=== PATIENT | male | born 1990 | race Caucasian/White ===

== ENCOUNTER → 2019-10-15 | Outpatient (CLI) | payer OTHER ==
[~2019-10-15] MED LIST: COLC1TAB13 PO; METHACHOLINE KIT (J7674) INH ONE; NAPR-837 PO
--- NOTE | 2019-10-15 08:41 | PFTRPT ---
Site: [facility], [address] [place], [address] ID: [id number] Name: OLIVIER OSCAR Visit Date: 10/15/2019 Second ID: [id number] Referring Doctor: Elham Kaufman Reviewing Doctor: Seymour Anglin MD Sales And Marketing Coordinator: Frederick SIMMONS RRT Age: 28 : 1990 Sex: Male Race: Height: 69.00 Inches Weight: 183.00 Lbs BSA: 1.99 Order IDs: [id number] Requested Test(s): <RESP-PFT.METH CHAL> Diagnosis: R05 of albuterol for postbronchodilator. Review Status: Not Reviewed Pre-Bronch Post-Bronch Pred Actual %Pred Actual %Chng SPIROMETRY FVC (L) 5.33 4.18 78 4.17 FEV1 (L) 4.36 3.61 82 3.51 -2 FEV1/FVC (%) 82 86 105 84 -2 FEF 25% (L/sec) 8.21 6.68 81 6.91 3 FEF 50% (L/sec) 5.64 4.54 80 4.13 -9 FEF 75% (L/sec) 2.13 2.03 95 1.93 -4 FEF 25-75% (L/sec) 4.43 3.95 89 3.69 -6 FEF Max (L/sec) 10.02 8.33 83 7.14 -14 FIVC (L) 3.57 3.34 -6 FIF 50% (L/sec) 5.53 4.05 73 4.34 7 FIF Max (L/sec) 4.08 4.55 11 Expiratory Time (sec) 6.57 6.66 1 Back Extrap Vol (L) 0.13 0.15 16 Time To FEFmax (sec) 0.073 0.122 66
== END ==
LOC: M CARPUL 07:53
PROVIDERS: ATTEND Nurse Practitioner Adult Health
DX: R05 Cough (principal)
CPT/HCPCS: 94070; J7674

== ENCOUNTER → 2020-12-16 | Outpatient (CLI) | payer OTHER ==
[~2020-12-16] MED LIST changes: +COLC0.6T47 PO; -COLC1TAB13 PO; -METHACHOLINE KIT (J7674) INH ONE
[2020-12-16 13:11] LABS: COLLAGEN EPINEPHRINE 164 SECONDS (74-162)
[2020-12-16 13:13] LABS: INR 1.04; PROTHROMBIN TIME 13.9 SECONDS (12.5-14.3)
[2020-12-16 13:14] LABS: PARTIAL THROMBOPLASTIN TIME 32.6 SECONDS (24.2-38.5)
[2020-12-16 13:31] LABS: COLLAGEN ADP 116 SECONDS (56-103)
== END ==
LOC: M LAB 12:25
PROVIDERS: ATTEND Physician Assistant
DX: M47.22 Other spondylosis with radiculopathy, cervical region (principal)

== ENCOUNTER → 2021-01-16 | Outpatient (CLI) | payer OTHER ==
[2021-01-16 15:03] LABS: PLATELET COUNT, AUTOMATED 234 10^3/uL (150-450)
[2021-01-16 15:37] LABS: COLLAGEN EPINEPHRINE > 300 SECONDS (74-162)
[2021-01-16 16:00] LABS: COLLAGEN ADP 100 SECONDS (56-103)
== END ==
LOC: M LAB 14:34
PROVIDERS: ATTEND Physical Medicine & Rehabilitation
DX: Z01.812 Encounter for preprocedural laboratory examination (principal)

== ENCOUNTER → 2021-01-19 | Outpatient (CLI) | payer OTHER ==
[2021-01-19 10:47] LABS: COLLAGEN EPINEPHRINE > 300.0 SECONDS (74-162)
[2021-01-19 11:13] LABS: COLLAGEN ADP 107 SECONDS (56-103)
== END ==
LOC: M LAB 09:08
PROVIDERS: ATTEND Physical Medicine & Rehabilitation
DX: Z01.818 Encounter for other preprocedural examination (principal)

== ENCOUNTER → 2021-01-23 | Outpatient (CLI) | payer OTHER ==
[2021-01-23 08:26] LABS: COLLAGEN EPINEPHRINE 178 SECONDS (74-162)
[2021-01-23 08:45] LABS: COLLAGEN ADP 116 SECONDS (56-103)
== END ==
LOC: M LAB 07:33
PROVIDERS: ATTEND Physical Medicine & Rehabilitation
DX: Z01.812 Encounter for preprocedural laboratory examination (principal)

== ENCOUNTER 2021-02-20 07:18 | Emergency (ER) | payer OTHER ==
[~2021-02-20] VITALS: Ht 175.3 cm; Wt 82.2 kg
[2021-02-20] MEDS ORDERED: ADVA230A (07:29)
[2021-02-20] MEDS ORDERED: AMPH1CAP14 (07:29)
[2021-02-20] MEDS ORDERED: PREG150C (07:29)
[2021-02-20] MEDS ORDERED: PROAAER10 (07:29)
[2021-02-20] MEDS ORDERED: ZOLP10TA2 (07:29)
[2021-02-20] MEDS ORDERED: DULO1CAP6 (07:29)
[2021-02-20 08:05] LABS: BASO # 0.1 10^3/uL (0.0-0.2); BASO % 0.4 % (0.0-1.0); EOS # 0.1 10^3/uL (0.0-0.5); EOS % 0.6 % (0.0-3.0); HEMATOCRIT 45.6 % (42.0-52.0); HEMOGLOBIN 15.1 g/dl (13.5-17.5); LYMPH # 1.3 10^3/uL (1.5-5.0); LYMPH % 7.7 % (24.0-44.0); MEAN CORPUSCULAR HEMOGLOBIN 28.5 pg (27.0-33.0); MEAN CORPUSCULAR HGB CONC 33.1 g/dl (32.0-36.5); MONO # 0.8 10^3/uL (0.0-0.8); MONO % 4.7 % (2.0-8.0); NEUTROPHILS # 14.2 10^3/uL (1.5-8.5); NEUTROPHILS % 86.3 % (36.0-66.0); PLATELET COUNT, AUTOMATED 224 10^3/uL (150-450); WHITE BLOOD COUNT 16.4 10^3/uL (4.0-10.0)
[2021-02-20] MEDS ORDERED: ISOVUE-370 76% 100ML VIAL As Ordered ONE (08:14)
[2021-02-20 08:35] LABS: ALBUMIN 3.9 GM/DL (3.2-5.2); BILIRUBIN,DIRECT 0.2 MG/DL (0.0-0.2); BILIRUBIN,TOTAL 0.6 MG/DL (0.2-1.0); FREE T4 1.08 NG/DL (0.76-1.46); THYROID STIMULATING HORMONE 0.561 uIU/ML (0.358-3.740); TOTAL PROTEIN 7.1 GM/DL (6.4-8.2)
--- NOTE | 2021-02-20 08:36 | REP ---
INDICATION: co COMPARISON: None. TECHNIQUE: Axial contrast enhanced images from the thoracic inlet to the upper abdomen using pulmonary embolus technique with multiplanar re-formations. 75 ml Isovue 370 intravenous contrast material administered without complication. This CT examination was performed using the following dose reduction techniques: Automated exposure control, adjustment of mA and/or kv according to the patient's size, and use of iterative reconstruction technique. FINDINGS: Satisfactory enhancement of the pulmonary vasculature is achieved and no filling defects are identified to suggest pulmonary embolus. Further evaluation of the mediastinum demonstrates normal thoracic aorta, heart and pericardium. Lung reyes demonstrate early bilateral lower lobe atelectasis and or dependent changes. No focal consolidation, effusion, or pneumothorax. Tracheobronchial tree is patent. No nodule or mass lesion is identified. No adenopathy noted. Surrounding musculoskeletal structures intact IMPRESSION: No evidence for pulmonary embolus. Questionable bibasilar early atelectasis versus dependent changes. No focal consolidation or effusion. <Electronically signed by Raheel He > 02/20/21 0566
--- NOTE | 2021-02-20 08:37 | REP ---
INDICATION: CHEST PAIN. COMPARISON: 10/06/2018. TECHNIQUE: Single portable AP view of the chest was performed. FINDINGS: There is no acute infiltrate or pulmonary edema. Lungs are clear. The heart is not significantly enlarged. The mediastinal silhouette is unremarkable. The visualized osseous structures are intact. IMPRESSION: No acute pulmonary disease. <Electronically signed by Dylon Chino > 02/20/21 0833
[2021-02-20 08:41] LABS: RSV AMPLIFICATION NEGATIVE (NEGATIVE)
[2021-02-20 08:45] VITALS: BP 111/68
[2021-02-20] MEDS ORDERED: DOXY-342 PO (08:48)
[2021-02-20] MEDS ORDERED: DOXYCYCLINE HYCLATE 100MG TABLET PO ONE (08:50)
--- NOTE | 2021-02-21 06:46 | ECGEPIP ---
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
== END 2021-02-20 09:05 | disposition home or self-care (01) ==
LOC: M ED 07:18
DX: J40 Bronchitis, not specified as acute or chronic (principal); R09.1 Pleurisy; D72.829 Elevated white blood cell count, unspecified; Z79.51 Long term (current) use of inhaled steroids; Z79.899 Other long term (current) drug therapy; Z83.3 Family history of diabetes mellitus
CPT/HCPCS: 71045; 71275; 80047; 80076; 83690; 84439; 84443; 84484; 85025; 87631; 93005; 93041; 94760; 99285; Q9967

== ENCOUNTER 2021-03-20 14:29 | Emergency (ER) | payer OTHER ==
[~2021-03-20] VITALS: Ht 175.3 cm; Wt 80.0 kg
[~2021-03-20 14:29] MED LIST changes: +ADVA230A; +AMPH1CAP14; +DOXY-342 PO; +DULO1CAP6; +PREG150C; +PROAAER10; +ZOLP10TA2
[2021-03-20 15:26] LABS: BASO # 0.1 10^3/uL (0.0-0.2); BASO % 0.4 % (0.0-1.0); EOS # 0.1 10^3/uL (0.0-0.5); EOS % 0.6 % (0.0-3.0); HEMATOCRIT 43.7 % (42.0-52.0); HEMOGLOBIN 14.6 g/dl (13.5-17.5); LYMPH # 1.6 10^3/uL (1.5-5.0); LYMPH % 12.2 % (24.0-44.0); MEAN CORPUSCULAR HEMOGLOBIN 28.6 pg (27.0-33.0); MEAN CORPUSCULAR HGB CONC 33.4 g/dl (32.0-36.5); MEAN CORPUSCULAR VOLUME 85.5 fl (80.0-96.0); MONO # 0.7 10^3/uL (0.0-0.8); MONO % 5.3 % (2.0-8.0); NEUTROPHILS # 10.8 10^3/uL (1.5-8.5); NEUTROPHILS % 80.9 % (36.0-66.0); PLATELET COUNT, AUTOMATED 250 10^3/uL (150-450); RED BLOOD COUNT 5.11 10^6/uL (4.30-6.10); WHITE BLOOD COUNT 13.4 10^3/uL (4.0-10.0)
[2021-03-20 15:37] LABS: INR 1.05; PROTHROMBIN TIME 13.9 SECONDS (12.5-14.3)
[2021-03-20 16:01] LABS: ALBUMIN 3.6 GM/DL (3.2-5.2); BILIRUBIN,DIRECT 0.1 MG/DL (0.0-0.2); BILIRUBIN,TOTAL 0.4 MG/DL (0.2-1.0); TOTAL PROTEIN 6.5 GM/DL (6.4-8.2)
[2021-03-20] MEDS ORDERED: NS 1,000 ML IV ONE (16:40)
[2021-03-20] MEDS ORDERED: EMLA CREAM 5GM TUBE (LIDOCAINE/PRILOCAINE) TOP ONE (16:50)
[2021-03-20] MEDS ORDERED: MORPHINE 4 MG/ML 1ML VIAL/SYRINGE (J2270) IV ONE (16:50)
[2021-03-20] MEDS ORDERED: ISOVUE-370 76% 100ML VIAL As Ordered ONE (16:54)
[2021-03-20] MEDS ORDERED: NS 1,000 ML IV SCH (18:05)
[2021-03-20 18:59] LABS: RSV AMPLIFICATION NEGATIVE (NEGATIVE)
--- NOTE | 2021-03-20 19:01 | REPVR ---
PROCEDURE INFORMATION: Exam: CT Abdomen And Pelvis With Contrast Exam date and time: 03/20/2021 5:28 PM Age: 30 years old Clinical indication: Pain and injury or trauma; Other: Recreational; Bleeding/hemorrhage; Lower; Other: Rectal; Additional info: Rectal trauma, pain, bleeding TECHNIQUE: Imaging protocol: Computed tomography of the abdomen and pelvis with contrast. Radiation optimization: All CT scans at this facility use at least one of these dose optimization techniques: automated exposure control; mA and/or kV adjustment per patient size (includes targeted exams where dose is matched to clinical indication); or iterative reconstruction. Contrast material: ISOVUE 370; Contrast volume: 100 ml; Contrast route: INTRAVENOUS (IV); COMPARISON: CT ANGIO CHEST 02/20/2021 8:17 AM FINDINGS: Mediastinal space: Small sliding hiatal hernia. Liver: 4 Mm low-density lesion segment 6 of liver without change. Gallbladder and bile ducts: Normal. No calcified stones. No ductal dilation. Pancreas: Normal. No ductal dilation. Spleen: Normal. No splenomegaly. Adrenal glands: Normal. No mass. Kidneys and ureters: Normal. No hydronephrosis. Stomach and bowel: There is an extraperitoneal hematoma noted in the mesial rectal fat on the right measuring 8.3 by 4.6 by 7.5 cm. Mural wall thickening of the rectum superiorly suggests intramural hemorrhage. The hemorrhage/edema extends into the distal sigmoid colon. Appendix: No evidence of appendicitis. Intraperitoneal space: Unremarkable. No free air. No significant fluid collection. Vasculature: Unremarkable. No abdominal aortic aneurysm. Lymph nodes: Unremarkable. No enlarged lymph nodes. Urinary bladder: The extraperitoneal hemorrhage extends superiorly along the right lateral bladder margin. Rounded area of hyperdensity noted along the right lateral wall of the bladder (series 201, image 126) could represent an intramural bladder hematoma Reproductive: Unremarkable as visualized. Bones/joints: Unremarkable. No acute fracture. Soft tissues: No subcutaneous emphysema. In the pelvis Other findings: There is stranding of the presacral fat. IMPRESSION: 1. Extraperitoneal hematoma and hemorrhage noted in the pelvis 2. Intramural hemorrhage involving the rectosigmoid colon. 3. Possible intramural bladder hematoma. This could also be extramural and related to the above described hematoma 4. 4 mm low-density liver lesion.In a low-risk patient, this lesion is most likely to be benign and no further follow-up is recommended. In a high-risk patient, recommend follow-up MRI in 3-6 months (or earlier if warranted by the patient's specific clinical circumstances). 5. Small sliding hiatal hernia. Electronically signed by: Lilli Galvan On 03/20/2021 19:00:34 PM
[2021-03-20 20:12] VITALS: BP 120/69
--- NOTE | 2021-03-21 10:52 | ECGEPIP ---
[facility] - ED Test Date: 2021-03-20 Pat Name: OLIVIER OSCAR Department: Room: - Gender: Male [employer]ag[employer] Helper: CATALINA : 1990 Requested By: SHWETHA Philip Order Number: [id number] Reading MD: Joana Benavidez Measurements Intervals [place] Rate: 73 P: 38 FL: 152 QRS: 30 QRSD: 88 T: 19 QT: 358 QTc: 394 Interpretive Statements Normal sinus rhythm with sinus arrhythmia similar 02/20/21 Electronically Signed on 03-21-2021 10:51:52 EDT by Joana Benavidez
== END 2021-03-20 20:16 | disposition short-term general hospital (02) ==
LOC: M ED 14:29
DX: S36.63XA Laceration of rectum, initial encounter (principal); K62.5 Hemorrhage of anus and rectum; W01.198A Fall on same level from slipping, tripping and stumbling with subsequent striking against other object, initial encounter; Y92.091 Bathroom in other non-institutional residence as the place of occurrence of the external cause; Y93.9 Activity, unspecified; Y99.9 Unspecified external cause status; J45.909 Unspecified asthma, uncomplicated; M54.9 Dorsalgia, unspecified; K76.89 Other specified diseases of liver; Z79.899 Other long term (current) drug therapy
CPT/HCPCS: 51702; 74177; 80047; 80076; 83690; 85025; 85610; 86850; 86900; 86901; 87631; 93005; 93041; 96361; 96374; 99285; J2270; Q9967

== ENCOUNTER 2021-03-27 09:11 | Emergency (ER) | payer OTHER ==
[~2021-03-27] VITALS: Ht 175.3 cm; Wt 81.8 kg
[2021-03-27] MEDS ORDERED: NS 1,000 ML IV ONE (12:00)
[2021-03-27 12:36] LABS: BASO # 0.1 10^3/uL (0.0-0.2); BASO % 0.6 % (0.0-1.0); EOS # 0.1 10^3/uL (0.0-0.5); HEMATOCRIT 37.7 % (42.0-52.0); HEMOGLOBIN 12.5 g/dl (13.5-17.5); LYMPH # 1.3 10^3/uL (1.5-5.0); LYMPH % 12.3 % (24.0-44.0); MEAN CORPUSCULAR HGB CONC 33.2 g/dl (32.0-36.5); MEAN CORPUSCULAR VOLUME 87.5 fl (80.0-96.0); MONO # 0.5 10^3/uL (0.0-0.8); MONO % 4.8 % (2.0-8.0); NEUTROPHILS # 8.6 10^3/uL (1.5-8.5); NEUTROPHILS % 80.6 % (36.0-66.0); PLATELET COUNT, AUTOMATED 249 10^3/uL (150-450); RED BLOOD COUNT 4.31 10^6/uL (4.30-6.10); WHITE BLOOD COUNT 10.6 10^3/uL (4.0-10.0)
[2021-03-27] MEDS ORDERED: MORPHINE 4 MG/ML 1ML VIAL/SYRINGE (J2270) IV ONE (13:00)
[2021-03-27] MEDS: GASTROGRAFIN SOLUTION 30ML PO SCH ×2 (13:40→14:38)
[2021-03-27] MEDS ORDERED: ISOVUE-370 76% 100ML VIAL As Ordered ONE (16:23)
--- NOTE | 2021-03-27 16:50 | REP ---
INDICATION: rectal trauma, increased pain compare to prior. COMPARISON: 03/20/2021. TECHNIQUE: CT pelvis performed in the axial plane following the intravenous administration of 100 cc of Isovue 370, as well as oral contrast. Sagittal and coronal reconstruction images are performed. FINDINGS: There is an oval right perirectal hematoma, extraperitoneal, which has mildly decreased in size compared to the prior study. Prior measurements were approximately 5.5 x 8.8 x 4.8 cm. Current measurements are approximately 5.0 x 7.1 x 4.3 cm. At the right base of the bladder there once again appears to be a small intramural bladder wall hematoma, also decreased in size. There is no extraluminal contrast visualized in this region, all of the visualized oral contrast which has been ingested is contained within the lumen of small and large bowel. The appendix is normal. No free air is seen. The visualized osseous structures are unremarkable. IMPRESSION: Right perirectal hematoma has mildly decreased in size. Small right intramural bladder wall hematoma is mildly decreased in size. No evidence of bowel perforation. <Electronically signed by Dylon Chino > 03/27/21 [id number]
[2021-03-27 17:03] LABS: APPEARANCE, URINE CLEAR (CLEAR); BACTERIA, URINE AUTO NEGATIVE (NEGATIVE); BILIRUBIN, URINE AUTO NEGATIVE (NEGATIVE); BLOOD, URINE BLOOD 1+ (NEGATIVE); COLOR, URINE YELLOW (YELLOW); GLUCOSE, URINE (UA) AUTO NEGATIVE (NEGATIVE); KETONE, URINE AUTO 2+ mg/dL (NEGATIVE); LEUKOCYTE ESTERASE, URINE AUTO NEGATIVE (NEGATIVE); MUCUS, URINE SMALL (NEGATIVE); NITRITE, URINE AUTO NEGATIVE (NEGATIVE); PROTEIN, URINE AUTO NEGATIVE (NEGATIVE); RBC, URINE AUTO 8 /HPF (0-3); SPECIFIC GRAVITY URINE AUTO 1.029 (1.002-1.035); SQUAMOUS EPITHELIAL CELL UR AU 0 /HPF (0-6); UROBILINOGEN, URINE AUTO 0.2 mg/dL (0.0-2.0); WBC, URINE AUTO 1 /HPF (0-3)
[2021-03-27] MEDS ORDERED: PROC1AER16 PR (17:12)
[2021-03-27] MEDS ORDERED: COLA100C5 PO (17:19)
[2021-03-27] MEDS ORDERED: MIRA3350 PO (17:19)
[2021-03-27] MEDS ORDERED: HYDR-3713 PO (17:23)
[2021-03-27 17:49] VITALS: BP 111/66
== END 2021-03-27 17:56 | disposition home or self-care (01) ==
LOC: M ED 09:11
DX: S36.69 Other injury of rectum (principal); S37.2 Injury of bladder; K64.5 Perianal venous thrombosis; X58.XXXS Exposure to other specified factors, sequela; Y92.9 Unspecified place or not applicable; Y93.9 Activity, unspecified; Y99.9 Unspecified external cause status; J45.909 Unspecified asthma, uncomplicated; Z79.899 Other long term (current) drug therapy
CPT/HCPCS: 72193; 80047; 81001; 85025; 96361; 96374; 99284; J2270; Q9963; Q9967

== ENCOUNTER → 2021-08-27 | Outpatient (REF) ==
[~2021-08-27] MED LIST changes: +ADDE1TAB14 PO; +AMBI6.25 PO; -AMPH1CAP14; +AMPH1CAP14 PO; +COLA100C5 PO; +CYMB1CAP4 PO; +HYDR-3713 PO; +MIRA3350 PO; +PREG200C PO; +PROC1AER16 PR
== END ==
LOC: M LABSMTC 09:44
PROVIDERS: ATTEND Pediatrics
DX: Z11.52 Encounter for screening for COVID-19 (principal)

== ENCOUNTER 2023-02-18 11:48 | Emergency (ER) | payer OTHER ==
[~2023-02-18] VITALS: Ht 175.3 cm; Wt 88.9 kg
[~2023-02-18 11:48] MED LIST changes: -DOXY-342 PO; +DOXY100C82 PO
[2023-02-18] MEDS ORDERED: AMOX875T2 PO (13:45)
[2023-02-18] MEDS ORDERED: NEOSPORIN OINT 0.9 GM PKT TOP ONE (13:50)
[2023-02-18 14:02] VITALS: BP 127/87; TEMP 97.7; O2SAT 100
== END 2023-02-18 14:08 | disposition home or self-care (01) ==
LOC: M ED 11:48
DX: S61.451A Open bite of right hand, initial encounter (principal); W54.0XXA Bitten by dog, initial encounter; Y99.0 Civilian activity done for income or pay; Z79.899 Other long term (current) drug therapy

== ENCOUNTER → 2023-03-30 | Outpatient (CLI) | payer OTHER ==
[~2023-03-30] MED LIST changes: +AMOX875T2 PO
== END ==
LOC: M PLAIMG 07:29
PROVIDERS: ATTEND Nurse Practitioner Family
DX: M54.12 Radiculopathy, cervical region (principal); M51.27 Other intervertebral disc displacement, lumbosacral region

== ENCOUNTER 2023-06-05 08:02 | Emergency (ER) | payer OTHER ==
[~2023-06-05] VITALS: Ht 175.3 cm; Wt 91.3 kg
[~2023-06-05 08:02] MED LIST changes: -PREG150C; +PREG150C2; -PREG200C PO; +PREG200C2 PO
[2023-06-05] MEDS ORDERED: BUSP5TA PO (08:25)
[2023-06-05] MEDS ORDERED: TRAZ1TAB11 PO (08:26)
[2023-06-05] MEDS ORDERED: IBUPROFEN 800 MG TAB PO ONE (08:45)
[2023-06-05 10:15] VITALS: BP 120/84; TEMP 97.7; O2SAT 99
== END 2023-06-05 10:20 | disposition home or self-care (01) ==
LOC: M ED 08:02
DX: K12.2 Cellulitis and abscess of mouth (principal); F10.10 Alcohol abuse, uncomplicated; Z79.52 Long term (current) use of systemic steroids; Z79.899 Other long term (current) drug therapy

== ENCOUNTER → 2025-07-10 | Outpatient (CLI) | payer OTHER ==
[~2025-07-10] MED LIST changes: -AMBI6.25 PO; +BUSP5TA PO; -COLC0.6T47 PO; +COLC0.6T53 PO; +DOXY-442 PO; -DOXY100C82 PO; +TRAZ1TAB11 PO; +ZOLP10TA11; -ZOLP10TA2; +ZOLP6.2544 PO
== END ==
LOC: M SLEEP 20:00
PROVIDERS: ATTEND Psychiatry & Neurology Psychiatry
DX: G47.61 Periodic limb movement disorder (principal)

== ENCOUNTER → 2025-08-15 | Outpatient (CLI) | payer OTHER | LOC: M PLAIMG 06:42 | PROVIDERS: ATTEND Registered Nurse | DX: M54.2 Cervicalgia (principal) ==